=== PATIENT | male | born 1985 | race Caucasian/White ===

== ENCOUNTER 2019-07-13 11:53 | Emergency (ER) | payer OTHER ==
[~2019-07-13] VITALS: Ht 182.9 cm; Wt 99.8 kg
[2019-07-13 11:56] VITALS: BP 174/96
[2019-07-13] MEDS ORDERED: AMOXICILLIN 50500 MG PO (12:16)
[2019-07-13] MEDS ORDERED: SULFACETAMIDE 115 M1 EA. EYE ×2 (12:17→12:18)
== END 2019-07-13 12:25 | disposition home or self-care (01) ==
LOC: ER 11:53
DX: H10.33 Unspecified acute conjunctivitis, bilateral (principal); Z76.0 Encounter for issue of repeat prescription; Z88.1 Allergy status to other antibiotic agents